=== PATIENT | female | born 1985 | race Caucasian/White ===

== ENCOUNTER 2020-10-02 11:27 | Emergency (ER) | payer OTHER ==
[2020-10-02 11:41] VITALS: BP 98/60; PULSE 76; TEMP 98.3; BMI 22.6
== END 2020-10-02 12:39 ==
LOC: JERFT 11:27
PROC: 0H9FXZZ Drainage of Right Hand Skin, External Approach (ICD-10-PCS; principal; 2020-10-02)
DX: L03.011 Cellulitis of right finger (principal)
CPT/HCPCS: 99283-25